=== PATIENT | female | born 1985 | race Caucasian/White ===

== ENCOUNTER 2017-06-28 11:38 | Emergency (ER) | payer OTHER ==
[~2017-06-28] VITALS: Ht 157.5 cm; Wt 77.1 kg
[~2017-06-28 11:38] MED LIST: HYDROXYZINE HCL25 M2 PO; PEPCID20 M1 PO; PREDNISONE20 M1 PO
--- NOTE | 2017-06-28 11:42 | ED GENERAL ADULT ---
See Addendum History of Present Illness General Chief Complaint: Seizure Stated Complaint: SEIZURE Source: patient, EMS Exam Limitations: no limitations Vital Signs & Intake/Output Vital Signs & Intake/Output Vital Signs Date Time Temp Pulse Resp B/P B/P Pulse O2 O2 Flow FiO2 Mean Ox Delivery Rate 06/28 1750 84 18 128/70 99 Room Air 06/28 1632 78 18 130/78 99 Room Air 06/28 1429 67 99 114/67 99 Room Air 06/28 1400 98.3 76 18 123/79 97 Room Air 06/28 1141 95 18 135/65 96 Allergies Coded Allergies: Penicillins (Intermediate, RASH 06/06/15) codeine (Mild, HALLUCINATIONS A CHILD 06/06/15) Reconcile Medications Alprazolam 2 MG TABLET 1 TAB PO TIDPRN ANXIETY (Reported) Citalopram Hydrobromide (Citalopram HBr) 20 MG TABLET 1 TAB PO DAILY DEPRESSION (Reported) Levothyroxine Sodium 100 MCG TABLET 1 TAB PO DAILY HYPOTHYROIDISM (Reported) Spironolactone 50 MG TABLET 1 TAB PO DAILY ACNE (Reported) Triage Nurses Notes Reviewed? yes Onset: Abrupt Duration: hour(s): Timing: recent history HPI: 06/28/17 42-year-old female presents to the emergency department after a seizure. According to bystanders she had a generalized seizure. The patient states that she has a history of anxiety and depression. She is currently on a high dose of Xanax. 2 mg every 6-8 hours. She does not believe she missed a dose. Today she was getting her nails done and she became unresponsive. She does complain of a mild headache. No chest pain shortness of breath or other complaints. Past History Travel History Traveled to [place] past 21 day No Medical History Any Pertinent Medical History? 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 Yes (blood clot problem) Review of Systems Review of Systems Constitutional: Denies: fever. EENTM: Reports: no symptoms. Respiratory: Denies: short of breath. Cardiovascular: Denies: chest pain. GI: Denies: abdominal pain. Genitourinary: Reports: no symptoms. Musculoskeletal: Reports: no symptoms. Skin: Reports: no symptoms. Neurological/Psychological: Reports: headache. Hematologic/Endocrine: Denies: bruising, bleeding. Physical Exam Physical Exam General Appearance: well developed/nourished, alert, awake, anxious, mild distress Head: atraumatic, normal appearance Eyes: Bilateral: normal appearance, PERRL, EOMI. Ears, Nose, Throat: normal pharynx, normal ENT inspection Neck: normal inspection, supple, full range of motion Respiratory: normal breath sounds, chest non-tender, no respiratory distress Cardiovascular: regular rate/rhythm Peripheral Pulses: 4+ radial (R), 4+ radial (L) Gastrointestinal: soft, non-tender Back: normal range of motion Extremities: normal inspection Neurologic/Psych: no motor/sensory deficits, awake, alert, oriented x 3 Skin: intact, normal color, warm/dry Core Measures ACS in differential dx? No CVA/TIA Diagnosis: No Sepsis Present: No Sepsis Focused Exam Completed? No Progress Differential Diagnoses I considered the following diagnoses in my evaluation of the patient: Plan of Care: Orders Procedure Date/time Status URINE DRUG SCREEN FOR ER ONLY 06/28 1159 Complete TROPONIN LEVEL 06/28 1159 Complete HUMAN BETA HCG SCREEN 06/28 1159 Complete D-DIMER 06/28 1159 Complete COMPREHENSIVE METABOLIC PANEL 06/28 1159 Complete CBC WITHOUT DIFFERENTIAL 06/28 1159 Complete Laboratory Tests 06/28/17 1218: Anion Gap 12, Estimated GFR > 60, BUN/Creatinine Ratio 30.0 H, Glucose 96, Calcium 9.4, Total Bilirubin 0.5, AST 22, ALT 27, Alkaline Phosphatase 67, Troponin I < 0.01, Total Protein 7.2, Albumin 4.4, Globulin 2.8, Albumin/ Globulin Ratio 1.6, Total Beta HCG NEGATIVE, D-Dimer High Sensitivty < 200, CBC w Diff NO MAN DIFF REQ, RBC 4.40, MCV 88.7, MCH 29.6, MCHC 33.3, RDW 13.3, MPV 8.2, Gran % 72.3, Lymphocytes % 20.3 L, Monocytes % 6.0, Eosinophils % 0.7, Basophils % 0.7, Absolute Granulocytes 5.3, Absolute Lymphocytes 1.5, Absolute Monocytes 0.4, Absolute Eosinophils 0.1, Absolute Basophils 0.1, Urine Opiates Screen < 100, Methadone Screen 53, Barbiturate Screen < 60, Ur Phencyclidine Scrn < 6.00, Amphetamines Screen 159, U Benzodiazepines Scrn 660 H, Urine Cocaine Screen < 50, Urine Cannabis Screen < 5.00 Initial ED EKG: none Departure Departure Disposition: HOME OR SELF CARE Condition: Stable Clinical Impression Primary Impression: Seizure Referrals: Chary PAK,Yuliet Medrano (PCP/Family) Departure Forms: Customer Survey General Discharge Information Comments 06/28/17 The patient was observed in the ER for several hours. Her headache resolved. CT scan of the head was negative. She did have left shoulder pain. X-ray the left shoulder was negative. Chest x-ray was also negative. D-dimer was negative. I discussed the case with the on-call neurologist Dr. Bello. He was in agreement with the plan. Would not start anticonvulsants at this time. She will follow up with outpatient neurology. She will not drive until cleared by neurology. She will return to the emergency department should symptoms recur. Critical Care Note Critical Care Note Critical Care Time: non-applicable
[2017-06-28] MEDS ORDERED: SPIRONOLACTONE50 M1 PO (11:55)
[2017-06-28] MEDS ORDERED: LEVOTHYROXINE100 MC1 PO (11:55)
[2017-06-28] MEDS ORDERED: ALPRAZOLAM2 M2 PO (11:55)
[2017-06-28] MEDS ORDERED: CITALOPRAM HBR20 MG PO (11:56)
[2017-06-28 12:39] LABS: ABSOLUTE BASOPHIL COUNT 0.1 /CUMM (0.0-0.2); ABSOLUTE EOSINOPHIL COUNT 0.1 /CUMM (0.0-0.7); ABSOLUTE GRANULOCYTE CT 5.3 /CUMM (1.4-6.5); ABSOLUTE LYMPH COUNT 1.5 /CUMM (1.2-3.4); ABSOLUTE MONOCYTE COUNT 0.4 /CUMM (0.10-0.60); BASOPHIL % 0.7 % (0.0-2.0); EOSINOPHIL % 0.7 % (0-5); GRANULOCYTE % 72.3 % (42.2-75.2); MEAN CORPUSCULAR HGB 29.6 PG (27.0-31.0); MEAN CORPUSCULAR HGB CONC 33.3 G/DL (33.0-37.0); MEAN CORPUSCULAR VOLUME 88.7 FL (81.0-99.0); MEAN PLATELET VOLUME 8.2 FL (7.4-10.4); PLATELET COUNT 384 /CUMM (130-400); RBC DISTRIBUTION WIDTH 13.3 % (11.5-14.5); WHITE BLOOD CELL COUNT 7.3 /CUMM (4.8-10.8)
--- NOTE | 2017-06-28 14:33 | CT SCAN REPORT ---
EXAMINATION: CT HEAD WITHOUT CONTRAST CLINICAL INFORMATION: Question syncope and seizures. COMPARISON: No relevant prior imaging. TECHNIQUE: Contiguous axial imaging was performed from the skull base to vertex without intravenous administration of contrast. DLP: 614.54 mGy-cm FINDINGS: There is no acute intracranial hemorrhage or abnormal extra-axial collection. No intracranial mass effect or midline shift. Lateral and third ventricles are normal. No hydrocephalus. Fleming-white matter differentiation is grossly preserved and there is no evidence of acute territorial infarct. The calvarium and skull base are intact. Mastoid air cells and middle ear cavities are well-aerated. Visualized paranasal sinuses are well-aerated. IMPRESSION: Normal CT scan of the head.
--- NOTE | 2017-06-28 14:59 | RADIOLOGY REPORT ---
EXAMINATION: CHEST 1 VIEW LEFT SHOULDER, 3 VIEWS CLINICAL INFORMATION: Syncope. Seizures. Rule out aspiration. Left shoulder pain. COMPARISON: None. TECHNIQUE: Single frontal view of the chest was obtained. 3 views of the left shoulder were obtained. FINDINGS: Lungs are clear. No focal consolidation or mass. Normal pulmonary vascularity. No pleural effusion or pneumothorax. Normal heart size. No rib fracture seen. Left glenohumeral and acromioclavicular joints are intact. No fracture or dislocation seen. IMPRESSION: No acute pulmonary disease. No acute osseous abnormality of the left shoulder.
[2017-06-28 17:50] VITALS: BP 128/70
== END 2017-06-28 18:22 ==
LOC: ERH 11:38
PROVIDERS: Emergency Medicine
DX: R56.9 Unspecified convulsions (principal); R51 Headache; M25.512 Pain in left shoulder; E03.9 Hypothyroidism, unspecified; F41.9 Anxiety disorder, unspecified
CPT/HCPCS: 71045; 73030-LT; 80307; 96361; 96365; 96375; J0131